=== PATIENT | female | born 1980 | race Caucasian/White ===

== ENCOUNTER 2016-06-07 14:53 | Emergency (ER) | payer MEDICARE, MEDICAID ==
[2016-06-07 16:49] VITALS: BP 118/64
--- NOTE | 2016-06-07 17:32 | UC ---
Skin Complaint HPI - HPI Summary HPI Summary: onset within the past 24 hours of an area of erythema just inferior to the left knee cap. This has a small central pustule. Has spina bifida, and at home she generally crawls on the floor rather than using her wheelchair. No fever, has been compressing and using triple antibiotic to the area. - History of Current Complaint Chief Complaint: UCSkin Time Seen by Provider: 06/07/16 17:19 Stated Complaint: LFT KNEE CAP SKIN COMPLAINT Hx Obtained From: Patient Hx Last Menstrual Period: 05/06/16 ?: No Onset/Duration: Gradual Onset, Lasting Days - 1 Skin Exposure Onset/Duration: Days Ago - crawling on the floor with exposed legs led to skin trauma. Timing: Constant Onset Severity: Mild Current Severity: Mild Location: Discrete, Other - left leg Character: Swelling, Redness, Painful Aggravating: Touch Alleviating: Nothing Associated Signs & Symptoms: Positive: Negative Related History: Trauma - Allergy/Home Medications Allergies/Adverse Reactions: Allergies Allergy/AdvReac Type Severity Reaction Status Date / Time Erythromycin AdvReac Intermediate GI Upset Verified 06/07/16 16:43 Review of Systems Constitutional: Negative Skin: Other - erythematous area with pustule. Eyes: Negative ENT: Negative Respiratory: Negative Cardiovascular: Negative Gastrointestinal: Negative Genitourinary: Other - uses macrodantin three times per week to prevent UTI's. Motor: Weakness - lower extremity weakness secondary to spina bifida Neurovascular: Negative Musculoskeletal: Negative Neurological: Negative Psychological: Negative All Other Systems Reviewed And Are Negative: Yes PMH/Surg Hx/FS Hx/Imm Hx - Additional Past Medical History Additional PMH: spina bifida history of UTI's neurogenic bladder Endocrine History Of: Denies: Diabetes Cardiovascular History Of: Denies: Cardiac Disorders Respiratory History Of: Reports: Pneumonia Denies: Asthma - Surgical History Surgical History: Yes Surgery Procedure, Year, and Place: [facility] 1977 - Family History Known Family History: Positive: Other - bladder cancer maternal grand mother, colon cancer paternal Grandfat Negative: Hypertension, Diabetes - Social History Occupation: Employed Part-time - news assistant. Alcohol Use: Rare Substance Use Type: None Smoking Status (MU): Never Smoked Tobacco - Immunization History Most Recent Influenza Vaccination: [id number] Physical Exam Triage Information Reviewed: Yes Appearance: Well-Appearing - wheel chair bound, middle aged female, No Pain Distress Vital Signs: Initial Vital Signs Temp 100 F 06/07/16 16:39 Pulse 114 06/07/16 16:39 Resp 17 06/07/16 16:39 BP 118/64 06/07/16 16:39 Pulse Ox 100 06/07/16 16:39 Vital Signs Reviewed: Yes Eyes: Positive: Conjunctiva Clear ENT: Positive: Pharynx normal Neck: Positive: Supple, Nontender Respiratory: Positive: Lungs clear, Normal breath sounds Cardiovascular: Positive: RRR, No Murmur Musculoskeletal Exam: Other - lower extremity weakness Neurological: Positive: Alert, Abnormal Muscle Tone - lower extremity weakness. Psychological Exam: Normal Skin Exam: Other - 4 x 3 cm area of erytehma and warmth just inferior and a little lateral to the left knee cap. Indurated with some depth. Course/Dx - Course Course Of Treatment: cephalexing for treatment. - Differential Diagnoses - Skin Complaint Differential Diagnoses: Abscess, Cellulitis - Diagnoses Provider Diagnoses: cellulitis with early abscess formation. Discharge - Discharge Plan Condition: Stable Disposition: HOME Prescriptions: Cephalexin CAP* [Keflex 500 CAP*] 500 mg PO QID #28 cap Patient Education Materials: Cellulitis (ED) Additional Instructions: As discussed, if you are not seeing signs of improvement by the 5th, call me correctional counselor/case manager [phone] OR call the office [phone].
== END 2016-06-07 17:53 | disposition home or self-care (01) ==
LOC: UCCORT 14:53
DX: L03.116 Cellulitis of left lower limb (principal); Z88.1 Allergy status to other antibiotic agents; Z87.440 Personal history of urinary (tract) infections; N31.9 Neuromuscular dysfunction of bladder, unspecified
CPT/HCPCS: 87070; 87077; 87186; 87205; 87640; 87641; 99212; G0463

== ENCOUNTER 2016-12-14 14:18 | Emergency (ER) | payer MEDICARE, MEDICAID ==
[2016-12-14 15:00] VITALS: BP 112/58
--- NOTE | 2016-12-14 15:32 | ED ---
Skin Complaint - HPI Summary HPI Summary: 36 y/o female PMHX of Spina bifida presents to the urgent care care c/o a rash w / redness over her anterior aspect of the LF lower leg for the past 2 days. Pt states she shaved her leg and she usually crawls at home to move from on place to the other. Pt states she has Hx of cellulitis and she usually gets antibiotics for several weeks and then they resolve. She is taking Macrobid Po for UTI prophylaxis. Pt denies fever, SOB, chest pain, N/V/D. Pt has not other complains. - History of Current Complaint Chief Complaint: UCSkin Time Seen by Provider: 12/14/16 15:10 Stated Complaint: LEFT KNEE SKIN COMPLAINT Hx Obtained From: Patient Hx Last Menstrual Period: 11/19/16 Onset/Duration: Started Days Ago, Still Present Timing: Constant Onset Severity: Mild Current Severity: Moderate Pain Intensity: 0 Pain Scale Used: 0-10 Numeric Skin Location: Discrete - anterior aspect of the LF lower leg Character: Swelling, Redness Aggravating Symptom(s): Nothing Alleviating Symptom(s): OTC Meds Associated Signs & Symptoms: Negative Related History: Possible Reaction to: Latex - Allergy/Home Medications Allergies/Adverse Reactions: Allergies Allergy/AdvReac Type Severity Reaction Status Date / Time Erythromycin AdvReac Intermediate GI Upset Verified 12/14/16 15:00 PMH/Surg Hx/FS Hx/Imm Hx Endocrine/Hematology History: Denies: Hx Diabetes Respiratory History: Reports: Hx Pneumonia Denies: Hx Asthma Neurological History: Reports: Other Neuro Impairments/Disorders - Spina Bifida - Surgical History Surgery Procedure, Year, and Place: [facility] 1977 Infectious Disease History: No Infectious Disease History: Denies: Traveled Outside the [place] in Last 30 Days - Family History Known Family History: Positive: None, Other - bladder cancer maternal grand mother, colon cancer paternal Grandfat Negative: Hypertension, Diabetes - Social History Occupation: Disabled Lives: With Family Alcohol Use: Rare Substance Use Type: Reports: None Smoking Status (MU): Never Smoked Tobacco Review of Systems Constitutional: Negative Positive: Fever Eyes: Negative ENT: Negative Cardiovascular: Negative Respiratory: Negative Gastrointestinal: Negative Genitourinary: Negative Musculoskeletal: Negative Positive: Rash - w/ redness ans swelling in the anterior aspect of the LF lower leg Neurological: Negative Psychological: Normal All Other Systems Reviewed And Are Negative: Yes Physical Exam Triage Information Reviewed: Yes Vital Signs On Initial Exam: Initial Vitals Temp Pulse Resp BP Pulse Ox 98.8 F 139 16 112/58 100 12/14/16 14:45 12/14/16 14:45 12/14/16 14:45 12/14/16 14:45 12/14/16 14:45 Vital Signs Reviewed: Yes Appearance: Positive: Well-Appearing, No Pain Distress, Well-Nourished - in a wheel chair A&OX3. Skin: Positive: Warm - anterior aspect of the left lower leg with erythematoud patch about 15cm x 6cm in size, warm, mild swelling. non tender to palaption. decrease sensation, positive capillary refill, positve reflex, limited ROM due to Pt condition of Spina Bifida Head/Face: Positive: Normal Head/Face Inspection Eyes: Positive: Normal, EOMI, HEMAL, Conjunctiva Clear ENT: Positive: Normal ENT inspection, Hearing grossly normal, Pharynx normal, TMs normal Neck: Positive: Supple, Nontender, No Lymphadenopathy Respiratory/Lung Sounds: Positive: Clear to Auscultation, Breath Sounds Present Cardiovascular: Positive: RRR, Pulses are Symmetrical in both Upper and Lower Extremities, Tachycardia, S1, S2 Abdomen Description: Positive: Nontender, No Organomegaly, Soft. Negative: CVA Tenderness (R), CVA Tenderness (L) Bowel Sounds: Positive: Present Musculoskeletal: Positive: Strength/ROM Intact, Limited @ - ROM due to patient; s condition Neurological: Positive: Normal, Sensory/Motor Intact, Alert, Oriented to Person Place, Time, CN Intact II-III Psychiatric: Positive: Normal Diagnostics - Vital Signs Vital Signs Temp Pulse Resp BP Pulse Ox 12/14/16 14:45 98.8 F 139 16 112/58 100 - Laboratory Lab Statement: Any lab studies that have been ordered have been reviewed, and results considered in the medical decision making process. Course/Dx - Course Course Of Treatment: 36 y/o female PMHX of Spina bifida presents to the urgent care care c/o a rash w/ redness over her anterior aspect of the LF lower leg for the past 2 days. Pt states she shaved her leg and she usually crawls at home to move from on place to the other. Pt states she has Hx of cellulitis and she usually gets antibiotics for several weeks and then they resolve. She is taking Macrobid Po for UTI prophylaxis. Pt denies fever, SOB, chest pain, N/ V/D. HX obtained. Pt W/ celluitis of the LF lower leg. EKG ordered due to PT HR 139bpm. EKG: Sinus Tachychardia. Pt afebrile. However Strongly advised to go to the ER for furhter evaluation and treatment to r/o sepsis. I call [facility] and Spoke to DR Aleman, who agreed to take the patient. Pt decline Ambulance transport. Her father came to take her by Private car to the [facility]. - Differential Diagnoses - Skin Complaint Differential Diagnoses: Abscess, Cellulitis, Impetigo, Lymphangitis, MRSA, Urticaria - Diagnoses Provider Diagnoses: cellulitis, Sinus tachycardia - Physician Notifications Discussed Care Of Patient With: Roberto Lora - Dr Lora agreed w/ PT care and treatment. Discharge - Discharge Plan Condition: Stable Disposition: AGAINST MEDICAL ADVICE Patient Education Materials: Cellulitis (ED) Referrals: Alee Shetty MD [Primary Care Provider] - 3 Days Additional Instructions: Please go immediately to the ER for further evaluation and treatment on your Cellulitis and Sinus tachycardia. Pt will go against medical advised for ambulance transfer. Pt will be taking by her father by private car.
== END 2016-12-14 16:17 | disposition left against medical advice (07) ==
LOC: UCCORT 14:18
DX: L03.116 Cellulitis of left lower limb (principal); R00.0 Tachycardia, unspecified; Q05.9 Spina bifida, unspecified; Z88.1 Allergy status to other antibiotic agents
CPT/HCPCS: 93005; 99212; G0463

== ENCOUNTER 2016-12-14 17:27 | Emergency (ER) | payer MEDICARE, MEDICAID ==
[2016-12-14 17:33] VITALS: BP 121/75
[2016-12-14 19:31] LABS: Hematocrit 43 % (35-47); Hemoglobin 13.8 g/dl (12.0-16.0); Mean Corpuscular HGB Conc 33 g/dl (31-36); Mean Corpuscular Hemoglobin 29 pg (27-31); Mean Corpuscular Volume 88 fL (80-97); Mean Platelet Volume 9 um3 (7.4-10.4); Red Blood Count 4.82 10^6/ul (4.0-5.4); Red Cell Distribution Width 14 % (10.5-15); White Blood Count 11.4 10^3/ul (3.5-10.8)
[2016-12-14 19:50] LABS: Albumin 4.2 g/dL (3.2-5.2); BUN/Creatinine Ratio 18.9 (8-20); Calcium 9.3 mg/dL (8.6-10.3); EGFR Non-African American 129.1 (>60); Globulin 3.5 g/dL (2-4); Potassium 3.5 mmol/L (3.5-5.0); Total Bilirubin 0.7 mg/dL (0.2-1.0); Total Protein 7.7 g/dL (6.4-8.9)
[2016-12-14] MEDS ORDERED: ceFAZolin 1 GM ADVAN(*) 1 GM in NS 0.9% 50 ML* 50 ML IVPB ONE (19:58)
[2016-12-14] MEDS ORDERED: NS 0.9% 1000 ML* 1,000 ML IV SCH (20:00)
[2016-12-14] MEDS ORDERED: NS 0.9% 50 ML* 50 ML ONE (20:04)
[2016-12-14] MEDS ORDERED: Cephalexin CAP* 500 MG PO ONE (20:29)
[2016-12-14 20:39] LABS: C Reactive Protein 190.27 mg/L (< 5.00)
--- NOTE | 2016-12-15 11:05 | ED ---
Lower Extremity - HPI Summary HPI Summary: 36 y/o female recently seen at for cellulitis, while being evaluated was noted to have asymptomatic tachy to 140's, sent to ER for evaluation. Patient states has white coat syndrome and baseline tachy typically 100-110s. for ~3 days has had redness, erythema on L rae, recently extending. tx- topical bactroban, no relief. no fever, chills. h/o spina bifida, frequent cellulits of LE's treated with PO abx by dr varela. ashely denies trauma. sob chest pain, lightheadedness, REYES abdominal complaints, urinary symptoms - History of Current Complaint Chief Complaint: EDExtremityLower Stated Complaint: LT LEG INFLAMMATION/HIGH HR-SENT F [facility] Time Seen by Provider: 12/14/16 18:53 Hx Obtained From: Patient Hx Last Menstrual Period: 11/19/16 Mechanism Of Injury: Unknown Onset of Pain: Days Onset/Duration: Days Severity Initially: Mild Severity Currently: Mild Pain Intensity: 0 Pain Scale Used: 0-10 Numeric - Allergies/Home Medications Allergies/Adverse Reactions: Allergies Allergy/AdvReac Type Severity Reaction Status Date / Time Erythromycin AdvReac Intermediate GI Upset Verified 12/14/16 15:00 PMH/Surg Hx/FS Hx/Imm Hx Previously Healthy: No - spina bifida, recurrent celluitis Endocrine/Hematology History: Denies: Hx Diabetes Respiratory History: Reports: Hx Pneumonia Denies: Hx Asthma Neurological History: Reports: Other Neuro Impairments/Disorders - Spina Bifida - Surgical History Surgery Procedure, Year, and Place: [facility] Infectious Disease History: Denies: Traveled Outside the [place] in Last 30 Days - Family History Known Family History: Positive: None, Other - bladder cancer maternal grand mother, colon cancer paternal Grandfat Negative: Hypertension, Diabetes - Social History Alcohol Use: Rare Substance Use Type: Reports: None Smoking Status (MU): Never Smoked Tobacco Review of Systems Positive: Rash All Other Systems Reviewed And Are Negative: Yes Physical Exam Triage Information Reviewed: Yes Vital Signs On Initial Exam: Initial Vitals Temp Pulse Resp BP Pulse Ox 97.8 F 138 20 121/75 100 12/14/16 17:31 12/14/16 17:31 12/14/16 17:31 12/14/16 17:31 12/14/16 17:31 Vital Signs Reviewed: Yes Appearance: Positive: Well-Appearing, No Pain Distress, Well-Nourished Skin: Positive: Warm, Erythema @ - L rae, makred with skin marker, + blanching , no weeping. open lesions, warm to touch, minimally tender, PT 2+, sensation intact, mild induration at upper portion, erythematous patch measuring ~ 10 x 4cm, induration at 11 oclock ~ 3cm diameter no lymhangitic spread noted. Head/Face: Positive: Normal Head/Face Inspection Neck: Positive: Supple, Nontender, No Lymphadenopathy Respiratory/Lung Sounds: Positive: Clear to Auscultation, Breath Sounds Present Cardiovascular: Positive: Normal, Pulses are Symmetrical in both Upper and Lower Extremities, Tachycardia, Leg Edema Left, Leg Edema Right - patient states at baseline, S1, S2 Musculoskeletal: Positive: Strength/ROM Intact - at baseline for patient per patient report - [place] Coma Scale Coma Scale Total: 15 Diagnostics - Vital Signs Vital Signs Temp Pulse Resp BP Pulse Ox 12/14/16 20:55 106 16 12/14/16 20:05 118 16 100 12/14/16 17:31 97.8 F 138 20 121/75 100 - Laboratory Lab Results: Lab Results 12/14/16 12/14/16 12/14/16 Range/Units 19:21 19:21 19:21 WBC 11.4 H (3.5-10.8) 10^3/ul RBC 4.82 (4.0-5.4) 10^6/ul Hgb 13.8 (12.0-16.0) g/dl Hct 43 (35-47) % MCV 88 (80-97) fL MCH 29 (27-31) pg MCHC 33 (31-36) g/dl RDW 14 (10.5-15) % Plt Count 200 (150-450) 10^3/ul MPV 9 (7.4-10.4) um3 Sodium 136 (133-145) mmol/L Potassium 3.5 (3.5-5.0) mmol/L Chloride 104 (101-111) mmol/L Carbon Dioxide 22 (22-32) mmol/L Anion Gap 10 (2-11) mmol/L BUN 10 (6-24) mg/dL Creatinine 0.53 (0.51-0.95) mg/dL Est GFR ( Amer) 166.0 (>60) Est GFR (Non-Af Amer) 129.1 (>60) BUN/Creatinine Ratio 18.9 (8-20) Glucose 86 (70-100) mg/dL Lactic Acid 1.2 (0.5-2.0) mmol/L Calcium 9.3 (8.6-10.3) mg/dL Total Bilirubin 0.70 (0.2-1.0) mg/dL AST 12 L (13-39) U/L ALT 12 (7-52) U/L Alkaline Phosphatase 47 (34-104) U/L C-Reactive Protein 190.27 H (< 5.00) mg/L Total Protein 7.7 (6.4-8.9) g/dL Albumin 4.2 (3.2-5.2) g/dL Globulin 3.5 (2-4) g/dL Albumin/Globulin Ratio 1.2 (1-3) Result Diagrams: 12/14/16 19:21 12/14/16 19:21 Lab Statement: Any lab studies that have been ordered have been reviewed, and results considered in the medical decision making process. Lower Extremity Course/Dx - Course Course Of Treatment: EKG- negative, compared with EKG from 2014- tachycardia. labs neg, minimally eleaveted WBC, IV abx given, PO abx for home, follow up with Dr. Varela saturday. while monitoring patient, tachycardida decreased to 90 -110s while talking about DC< elevated to 130's when talking about treatment, plan. Patient admits to anxiety with staying in hospital - Diagnoses Differential Diagnosis/HQI/PQRI: Positive: Cellulitis Provider Diagnoses: Cellulitis of left lower leg, Tachycardia Discharge - Discharge Plan Condition: Improved Disposition: HOME Prescriptions: Cephalexin CAP* [Keflex CAP*] 500 mg PO QID #40 cap MDD 4 Patient Education Materials: Cellulitis (ED) Referrals: Alee Varela MD [Primary Care Provider] - Additional Instructions: - Follow up with DR. Varela on Saturday - Return to ER with spreading of cellulitis, fever, chills, Shortness of breath , or new symptoms - antibiotics as directed - No macrobid tonight, discuss with Dr. Varela Saturday
== END 2016-12-14 21:04 | disposition home or self-care (01) ==
LOC: ED 17:27
DX: L03.116 Cellulitis of left lower limb (principal); R00.0 Tachycardia, unspecified
CPT/HCPCS: 36415; 80053; 83605; 85027; 86140; 87040; 99283; A9270-GY

== ENCOUNTER 2019-01-21 13:32 | Emergency (ER) | payer MEDICARE, MEDICAID ==
[2019-01-21 13:55] VITALS: BP 132/74
--- NOTE | 2019-01-21 14:16 | UC ---
Complaint Female HPI - HPI Summary HPI Summary: 38-year-old female with history of spina bifida presents with 2 day history of malodorous urine and bladder discomfort. Patient self catheterizes. She is on a prophylactic regimen of nitrofurantoin. She is followed by Dr. Aldana, urology. Patient does note that her last UTI which was approximately 2 years ago grew out 2 separate organisms with one of the organisms being resistant to multiple antibiotics. Denies fever, chills, back or flank pain, nausea, vomiting, or hematuria. - History Of Current Complaint Chief Complaint: UCGU Stated Complaint: URINARY Time Seen by Provider: 01/21/19 13:45 Hx Obtained From: Patient Hx Last Menstrual Period: 11/19/16 Pain Intensity: 0 - Allergies/Home Medications Allergies/Adverse Reactions: Allergies Allergy/AdvReac Type Severity Reaction Status Date / Time erythromycin base Allergy GI Upset Verified 01/21/19 13:47 PMH/Surg Hx/FS Hx/Imm Hx GI/ History: Other - Recurrent UTI Other Neurological History: spina bifida - Surgical History Surgical History: Yes Surgery Procedure, Year, and Place: [facility] - Family History Known Family History: Positive: Other - bladder cancer maternal grand mother, colon cancer paternal Grandfat Negative: Hypertension, Diabetes - Social History Occupation: Disabled Lives: With Family Alcohol Use: Rare Substance Use Type: None Smoking Status (MU): Never Smoked Tobacco - Immunization History Most Recent Influenza Vaccination: [id number] Review of Systems All Other Systems Reviewed And Are Negative: Yes Constitutional: Negative: Fever, Chills Respiratory: Positive: Negative Cardiovascular: Positive: Negative Gastrointestinal: Positive: Abdominal Pain. Negative: Vomiting, Nausea Genitourinary: Negative: Dysuria, Hematuria, Vaginal/Penile Discharge Musculoskeletal: Positive: Negative Neurological: Positive: Negative Is Patient Immunocompromised?: No Physical Exam - Summary Physical Exam Summary: GENERAL APPEARANCE: Well developed, well nourished, alert and cooperative, and appears to be in no acute distress. CARDIAC: Normal S1 and S2. No S3, S4 or murmurs. Rhythm is regular. There is no peripheral edema, cyanosis or pallor. Extremities are warm and well perfused. Capillary refill is less than 2 seconds. Peripheral pulses intact. LUNGS: Clear to auscultation without rales, rhonchi, wheezing or diminished breath sounds. ABDOMEN: Positive bowel sounds. Soft, nondistended, nontender. No guarding or rebound. No masses or hepatosplenomegally. No CVA tenderness. MUSKULOSKELETAL: ROM intact to all extremities. No joint erythema or tenderness. Wheelchair dependent. SKIN: Skin normal color, texture and turgor with no lesions or eruptions. Triage Information Reviewed: Yes Vital Signs: Initial Vital Signs Temp 99.8 F 01/21/19 13:49 Pulse 123 01/21/19 13:49 Resp 18 01/21/19 13:49 BP 132/74 01/21/19 13:49 Pulse Ox 100 01/21/19 13:49 Vital Signs Reviewed: Yes Complaint Female Dx - Course Course Of Treatment: 38-year-old female with history of spina bifida presents with 2 day history of malodorous urine and bladder discomfort. Patient self catheterizes. She is on a prophylactic regimen of nitrofurantoin. She is followed by Dr. Aldana, urology. Patient does note that her last UTI which was approximately 2 years ago grew out 2 separate organisms with one of the organisms being resistant to multiple antibiotics. Denies fever, chills, back or flank pain, nausea, vomiting, or hematuria. Afebrile. Mildly hypertensive and tachycardic otherwise vital signs stable. Review of patient's records shows that she is tachycardic at baseline. Patient's exam was overall unremarkable. Point-of- care urinalysis showed trace leukocyte esterase. Urine culture is pending. Based on patient's symptoms and her high likelihood of UTI secondary to self- catheterization we will treat her empirically for a UTI. Review of her last urine cultures grew out positive for Escherichia coli > 100,000 CFU/ml that was sensitive to everything except nitrofurantoin and Klebsiella pneumoniae 50-75, 000 CFU/ml that was resistant to multiple antibiotics however did show sensitivity to levofloxacin. We will place her on levofloxacin 750 mg daily 7 days pending the urine culture results. She is to follow-up with her primary care provider in 3 days if symptoms are not improving. I have also suggested that she contact her urologist should her urine culture again grow out an organism with multidrug resistance. Anticipatory guidance and warning symptoms were reviewed with the patient. Verbalizes understanding and agrees with plan of care. - Differential Dx/Diagnosis Differential Diagnosis/HQI/PQRI: Urinary Tract Infection, Other - Pyelonephritis Provider Diagnosis: UTI (urinary tract infection) Discharge ED - Sign-Out/Discharge Documenting (check all that apply): Patient Departure All imaging exams completed and their final reports reviewed: No Studies - Discharge Plan Condition: Stable Disposition: HOME Prescriptions: levoFLOXacin [Levofloxacin] 750 mg PO DAILY #7 tablet Patient Education Materials: Urinary Tract Infection in Women (ED) Referrals: Yuliana Resendez DO [Primary Care Provider] - 3 Days Additional Instructions: Your urine test in the clinic today is suggestive of a urinary tract infection. We will start you on an antibiotic to treat for the infection based on your last urine culture result that showed resistance to multiple antibiotics. We will also send a urine culture today to see what bacteria grow out and make sure the antibiotic you were prescribed is appropriate to treat the infection. It will take 48-72 hours to get these results. We will contact you if there is any change in your treatment plan. Start levofloxacin 750 mg 1 tab daily for 7 days. Stop your nitrofurantoin while taking this antibiotic. You may resume your normal prophylactic routine once you have completed treatment. Drink plenty of fluids. Follow up with your primary care provider in 37 days if symptoms persist. If your urine culture grows an organism with multiple drug resistance you should discuss this with your urologist. Seek immediate medical attention in the emergency room if you develop fever greater than 100.5 F, have severe abdominal pain, persistent vomiting, or any worsening of symptoms. - Billing Disposition and Condition Condition: STABLE Disposition: Home
== END 2019-01-21 14:45 | disposition home or self-care (01) ==
LOC: UCCORT 13:32
DX: N39.0 Urinary tract infection, site not specified (principal); Q05.9 Spina bifida, unspecified
CPT/HCPCS: 81003; 87077; 87086; 87186; 99212; G0463

== ENCOUNTER 2019-08-26 09:25 | Emergency (ER) | payer MEDICARE, MEDICAID ==
[2019-08-26 09:57] VITALS: BP 124/82
[2019-08-26] MEDS ORDERED: Cephalexin CAP* 500 MG PO ONE (10:07)
--- NOTE | 2019-08-26 10:15 | UC ---
Complaint Female HPI - HPI Summary HPI Summary: 39 yo female with hx spina bifida presents with concerns re UTI 2-3 day hx of mild suprapubic discomfort and mild right flank pain she self caths urine foul smelling on marcobid prophylaxis 4x /wk was admitted as infant with febrile UTI - History Of Current Complaint Chief Complaint: UCGU Stated Complaint: URINARY COMPLAINT Time Seen by Provider: 08/26/19 09:40 Hx Obtained From: Patient Hx Last Menstrual Period: 11/19/16 Onset/Duration: Gradual Onset, Lasting Days Timing: Constant Severity Initially: Mild Pain Intensity: 3 Pain Scale Used: 0-10 Numeric Radiates to: right flank Character: Dull Aggravating Factor(s): Nothing Associated Signs And Symptoms: Negative: Fever, Back Pain, Vaginal Bleeding/ Discharge, Vaginal Discharge, Nausea, Vomiting(# Of Episodes =), Genital Swelling, Genital Blisters, Retained Foregin Body (Specify) Related Hx: Similar Episode/Dx as: - UTI - Allergies/Home Medications Allergies/Adverse Reactions: Allergies Allergy/AdvReac Type Severity Reaction Status Date / Time erythromycin base Allergy GI Upset Verified 08/26/19 09:53 Home Medications: Home Medications Nitrofurantoin Macrocrystals* [Macrodantin*] 50 mg PO SEE INSTRUCTIONS 03/14/17 [History Confirmed 08/26/19] Cephalexin CAP* [Keflex CAP*] 500 mg PO BID #14 cap 08/26/19 [Rx] PMH/Surg Hx/FS Hx/Imm Hx Previously Healthy: Yes - spina bifida - Surgical History Surgical History: Yes Surgery Procedure, Year, and Place: [facility] - Family History Known Family History: Positive: Other - bladder cancer maternal grand mother, colon cancer paternal Grandfat Negative: Hypertension, Diabetes - Social History Alcohol Use: None Substance Use Type: None Smoking Status (MU): Never Smoked Tobacco - Immunization History Most Recent Influenza Vaccination: [id number] Review of Systems All Other Systems Reviewed And Are Negative: Yes Constitutional: Positive: Negative Skin: Positive: Negative Eyes: Positive: Negative ENT: Positive: Negative Respiratory: Positive: Negative Cardiovascular: Positive: Negative Gastrointestinal: Positive: Negative Genitourinary: Positive: Negative Motor: Positive: Other - unchanged Neurovascular: Positive: Negative Musculoskeletal: Positive: Negative Neurological/Mental Status: Positive: Negative Psychological: Positive: Negative Physical Exam Triage Information Reviewed: Yes Appearance: Well-Appearing, Other: - in Wheel Chair Vital Signs: Initial Vital Signs Temp 97.6 F 08/26/19 09:54 Pulse 110 08/26/19 09:54 Resp 16 08/26/19 09:54 BP 124/82 08/26/19 09:54 Pulse Ox 100 08/26/19 09:54 Vital Signs Reviewed: Yes Eye Exam: Normal Eyes: Positive: Conjunctiva Clear ENT: Positive: Hearing grossly normal, Uvula midline. Negative: Nasal congestion, Nasal drainage, Tonsillar swelling, Tonsillar exudate, Hoarse voice Neck: Positive: Supple, Nontender Respiratory: Positive: Lungs clear, Normal breath sounds, No respiratory distress, No accessory muscle use Cardiovascular: Positive: RRR, No Murmur Abdomen Description: Positive: Nontender, No Organomegaly Bowel Sounds: Positive: Present Musculoskeletal: Positive: Other: - in wheel chair/atrophy LE Neurological: Positive: Alert, Other: Psychological Exam: Normal Skin Exam: Normal Complaint Female Dx - Differential Dx/Diagnosis Provider Diagnosis: UTI (urinary tract infection) Discharge ED - Sign-Out/Discharge Documenting (check all that apply): Patient Departure All imaging exams completed and their final reports reviewed: No Studies - Discharge Plan Condition: Stable Disposition: HOME Prescriptions: Cephalexin CAP* [Keflex CAP*] 500 mg PO BID #14 cap Patient Education Materials: Urinary Tract Infection in Women (ED) Referrals: Yuliana Resendez DO [Primary Care Provider] - If Needed Additional Instructions: based on your history I suspect a UTI A culture is pending Let us know if you develop new symptoms (fever/vomiting/worsening flank pain) Hold off on taking macrobid until finished with keflex - Billing Disposition and Condition Condition: STABLE Disposition: Home
--- NOTE | 2019-08-28 16:16 | UC ---
- Progress Note Progress Note: Please call to advise that urine culture showed no growth. She has a hx of spina bifida and takes preventative macrodantin. If the cephalexin improved her symptoms, she should complete the course despite the negative culture, and then resume her macrodantin as prescribed by her PMD. Course/Dx - Diagnoses Provider Diagnoses: UTI (urinary tract infection) Discharge ED - Sign-Out/Discharge Documenting (check all that apply): Post-Discharge Follow Up All imaging exams completed and their final reports reviewed: No Studies - Discharge Plan Condition: Stable Disposition: HOME Prescriptions: Cephalexin CAP* [Keflex CAP*] 500 mg PO BID #14 cap Patient Education Materials: Urinary Tract Infection in Women (ED) Referrals: Yuliana Resendez DO [Primary Care Provider] - If Needed Additional Instructions: based on your history I suspect a UTI A culture is pending Let us know if you develop new symptoms (fever/vomiting/worsening flank pain) Hold off on taking macrobid until finished with keflex - Billing Disposition and Condition Condition: STABLE Disposition: Home
== END 2019-08-26 10:26 | disposition home or self-care (01) ==
LOC: UCCORT 09:25
DX: N39.0 Urinary tract infection, site not specified (principal); Q05.9 Spina bifida, unspecified; Z88.1 Allergy status to other antibiotic agents
CPT/HCPCS: 81003; 87086; 99212; A9270-GY; G0463